=== PATIENT | male | born 1995 | race Caucasian/White ===

== ENCOUNTER 2016-09-30 16:04 | Emergency (ER) | payer BC ==
[2016-09-30] MEDS ORDERED: ACETAMINOPHEN 325 MG TABLET PO ONE (16:30)
[2016-09-30] MEDS ORDERED: NORMAL SALINE 1000 ML 1,000 ML IV ONE (16:30)
--- NOTE | 2016-09-30 16:34 | ER Document Report ---
ED Medical Screen (RME) - General Chief Complaint: Fever Stated Complaint: POSSIBLE SEPSIS SYMPTOMS Mode of Arrival: Wheelchair Information source: Patient, Relative Notes: 21-year-old male presents to the emergency department complaining of fever, lightheadedness, and generalized weakness. 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 I have greeted and performed a rapid initial assessment of this patient. A comprehensive ED assessment and evaluation of the patient, analysis of test results and completion of the medical decision making process will be conducted by additional ED providers. - Related Data Allergies/Adverse Reactions: No Known Allergies Allergy (Unverified 09/30/16 16:30) Past Medical History - Social History Frequency of alcohol use: Social Drug Abuse: Marijuana Renal/ Medical History: Denies: Hx Peritoneal Dialysis - Immunizations Hx Diphtheria, Pertussis, Tetanus Vaccination: Yes Physical Exam - Vital signs Vitals: Temp Pulse Resp BP Pulse Ox 101.8 F H 82 20 124/75 100 09/30/16 16:28 09/30/16 16:28 09/30/16 16:28 09/30/16 16:28 09/30/16 16:28 - General General appearance: Alert, Lethargic In distress: None - Respiratory Respiratory status: No respiratory distress Course - Vital Signs Vital signs: Temp Pulse Resp BP Pulse Ox 101.8 F H 82 20 124/75 100 09/30/16 16:28 09/30/16 16:28 09/30/16 16:28 09/30/16 16:28 09/30/16 16:28
[2016-09-30 17:08] LABS: ABSOLUTE LYMPHOCYTES (AUTO) 0.7 10^3/uL (0.5-4.7); ABSOLUTE MONOCYTES (AUTO) 0.7 10^3/uL (0.1-1.4); ABSOLUTE NEUT (AUTO) 4.7 10^3/uL (1.7-8.2); BASOPHILS % (AUTO) 0.4 % (0-2); EOSINOPHILS % (AUTO) 0.2 % (0-6); HEMATOCRIT 46.6 % (37.9-51.0); HEMOGLOBIN 15.7 g/dL (13.5-17.0); HGB HCT DIFFERENCE 0.5; LYMPHOCYTES % (AUTO) 10.9 % (13-45); MEAN CORPUSCULAR HEMOGLOBIN 29.5 pg (27.0-33.4); MEAN CORPUSCULAR HGB CONC 33.6 g/dL (32.0-36.0); MEAN CORPUSCULAR VOLUME 88 fl (80-97); MONOCYTES % (AUTO) 12.1 % (3-13); RED BLOOD COUNT 5.31 10^6/uL (4.35-5.55); RED CELL DISTRIBUTION WIDTH 12.7 % (11.5-14.0); SEGMENTED NEUTROPHILS % (AUTO) 76.4 % (42-78); WHITE BLOOD COUNT 6.2 10^3/uL (4.0-10.5)
[2016-09-30 17:09] LABS: VENOUS BLOOD HCO3 22.6 mmol/L (20-32); VENOUS BLOOD PCO2 23.9 mmHg (35-63); VENOUS BLOOD PH 7.59 (7.30-7.42)
[2016-09-30 17:13] LABS: PROTHROMBIN TIME 13.9 SEC (11.4-15.4)
[2016-09-30 17:18] LABS: APPEARANCE,URINE SLIGHTLY-CLOUDY; BILIRUBIN,URINE NEGATIVE (NEGATIVE); GLUCOSE, URINE NEGATIVE (NEGATIVE); KETONES,URINE 20 mg/dL (NEGATIVE); LEUKOCYTE ESTERASE,URINE NEGATIVE (NEGATIVE); NITRITE,URINE NEGATIVE (NEGATIVE); PROTEIN,URINE 30 mg/dL (NEGATIVE); URINE SPECIFIC GRAVITY 1.025; UROBILINOGEN,URINE NEGATIVE mg/dL (<2.0)
[2016-09-30 17:29] LABS: ALANINE AMINOTRANSFERASE 27 U/L (21-72); ALKALINE PHOSPHATASE 71 U/L (38-126); ANION GAP 15 (5-19); ASPARTATE AMINO TRANSFERASE 24 U/L (17-59); BILIRUBIN,TOTAL 1.1 mg/dL (0.2-1.3); BLOOD UREA NITROGEN 11 mg/dL (7-20); CALCIUM 10.3 mg/dL (8.4-10.2); CARBON DIOXIDE 20 mmol/L (22-30); CHLORIDE 105 mmol/L (98-107); CREATININE RESULT 0.91 mg/dL (0.52-1.25); GLUCOSE 85 mg/dL (75-110); POTASSIUM 3.8 mmol/L (3.6-5.0); SODIUM 139.7 mmol/L (137-145); TOTAL PROTEIN 7.6 g/dL (6.3-8.2)
[2016-09-30 17:31] LABS: URINE BARBITURATES SCREEN NEGATIVE; URINE METHADONE SCREEN NEGATIVE; URINE PHENCYCLIDINE SCREEN NEGATIVE
--- NOTE | 2016-09-30 17:50 | ER Document Report ---
ED General - General Time seen by provider: 17:50 Mode of Arrival: Wheelchair Information source: Patient, Relative - spouse - HPI Onset: Other - see HPI Quality of pain: Achy Associated symptoms: Body/muscle aches, Productive cough, Fever, Nausea, Vomiting, Other - lightheaded <DEIDRE LY - Last Filed: 09/30/16 19:38> <SARAHANIBAL RJ - Last Filed: 09/30/16 22:48> - General Chief Complaint: Fever Stated Complaint: POSSIBLE SEPSIS SYMPTOMS Notes: Patient is a 21-year-old male presents emergency department with fever, nausea, body aches, vomiting and some lightheadedness. Patient also, complains of some sores to skin area on his hips bilaterally. Patient has had these for more than a year. Patient is coughing upon arrival in the room and states that his body aches as well as his head. Patient states he drank EtOH last night and that he smokes marijuana. Patient has a fever of 102 F. Patient states he did not get a flu shot this year. Patient has no known allergies. (DEIDRE LY) - Related Data Allergies/Adverse Reactions: No Known Allergies Allergy (Unverified 09/30/16 16:30) Past Medical History - General Information source: Patient, Relative - Social History Smoking Status: Current Every Day Smoker Frequency of alcohol use: Social Drug Abuse: Marijuana Family History: None Patient has suicidal ideation: No Patient has homicidal ideation: No - Immunizations Hx Diphtheria, Pertussis, Tetanus Vaccination: Yes History of Influenza Vaccine for 06/2016 - 11/2016 Season: No <DEIDRE LY - Last Filed: 09/30/16 19:38> Review of Systems - Review of Systems Constitutional: See HPI, Fever, Malaise EENT: No symptoms reported Cardiovascular: See HPI, Lightheaded Respiratory: See HPI, Cough Gastrointestinal: See HPI, Nausea, Vomiting Genitourinary: No symptoms reported Male Genitourinary: No symptoms reported Musculoskeletal: See HPI Skin: See HPI Hematologic/Lymphatic: No symptoms reported Neurological/Psychological: See HPI, Headaches -: Yes All other systems reviewed and negative <DEIDRE LY - Last Filed: 09/30/16 19:38> Physical Exam - Vital signs Interpretation: Febrile - General General appearance: Appears well, Alert In distress: Mild - HEENT Head: Normocephalic, Atraumatic Eyes: Normal Pupils: PERRL Nasal: Clear rhinorrhea Mucous membranes: Dry - Respiratory Respiratory status: No respiratory distress Chest status: Nontender Breath sounds: Normal Chest palpation: Normal - Cardiovascular Rhythm: Regular Heart sounds: Normal auscultation Murmur: No - Abdominal Inspection: Other - healed folliculitis on bilateral hips Distension: No distension Bowel sounds: Normal Tenderness: Nontender Organomegaly: No organomegaly - Back Back: Normal, Nontender - Extremities General upper extremity: Normal inspection, Normal ROM, Normal strength General lower extremity: Normal inspection, Normal ROM, Normal strength - Neurological Neuro grossly intact: Yes Cognition: Normal Orientation: AAOx4 [place] Coma Scale Eye Opening: Spontaneous [place] Coma Scale Verbal: Oriented [place] Coma Scale Motor: Obeys Commands [place] Coma Scale Total: 15 Speech: Normal - Psychological Associated symptoms: Normal affect, Normal mood - Skin Skin Temperature: Hot Skin Moisture: Dry Skin Color: Flushed <DEIDRE LY - Last Filed: 09/30/16 19:38> Course - Laboratory Result Diagrams: 09/30/16 16:55 09/30/16 16:55 <DEIDRE LY - Last Filed: 09/30/16 19:38> - Laboratory Result Diagrams: 09/30/16 16:55 09/30/16 16:55 <ANIBAL SMITH - Last Filed: 09/30/16 22:48> - Re-evaluation Re-evalutation: 09/30/16 Patient with fever, cough, erythematous oropharynx. Patient with influenza A. Patient is requesting a prophylactic antibiotic for his skilled folliculitis on his bilateral hips. I have discussed at length with the patient skin infections , flocculated is, and MRSA. I haven't explained at length that he does not need a prophylactic antibiotic. Patient's significant other has threatened to kelly me for malpractice if I do not treat him for a MRSA infection today. I've explained that the patient's symptoms today are consistent with influenza and the patient does not have anything that looks like an active cellulitis or abscess at this time. Patient has been given a prescription for Bactroban and is to follow-up with his doctor. Stable for discharge. (ANIBAL SMITH) - Vital Signs Vital signs: Temp Pulse Resp BP Pulse Ox 98.7 F 87 20 113/52 L 99 09/30/16 19:45 09/30/16 19:45 09/30/16 19:45 09/30/16 19:45 09/30/16 19:45 (DEIDRE LY) (ANIBAL SMITH) - Laboratory Laboratory results interpreted by me: 09/30/16 09/30/16 09/30/16 16:55 16:55 16:55 Lymphocytes % 10.9 L VBG pH 7.59 H VBG pCO2 23.9 L Carbon Dioxide 20 L Calcium 10.3 H Urine Protein Urine Ketones 09/30/16 17:10 Lymphocytes % VBG pH VBG pCO2 Carbon Dioxide Calcium Urine Protein 30 H Urine Ketones 20 H (DEIDRE LY) (ANIBAL SMITH) Discharge <DEIDRE LY - Last Filed: 09/30/16 19:38> <ANIBAL SMITH - Last Filed: 09/30/16 22:48> - Discharge Clinical Impression: Influenza A, Folliculitis Condition: Stable Disposition: HOME, SELF-CARE Instructions: Folliculitis ([facility]), Influenza ([facility]) Prescriptions: Mupirocin [Bactroban 2% Ointment 22 gm] 1 applic TP TID #1 tube Oseltamivir Phosphate [Tamiflu 75 mg Capsule] 75 mg PO BID #10 capsule Forms: Return to Work Scribe Attestation: 09/30/16 22:48 I personally performed the services described in the documentation, reviewed and edited the documentation which was dictated to the scribe in my presence, and it accurately records my words and actions. (ANIBAL SMITH) Scribe Documentation - Scribe Written by Scribmikey:: Deidre Ly 09/30/16 19:10 acting as scribe for :: Sarah <DEIDRE LY - Last Filed: 09/30/16 19:38>
[2016-09-30 18:01] LABS: LIPASE 29.8 U/L (23-300)
[2016-09-30] MEDS ORDERED: RINGERS SOLUTION,LACTATED 1,000 ML IV ONE (18:41)
[2016-09-30 19:53] VITALS: BP 113/52
--- NOTE | 2016-09-30 20:30 | EKG REPORT ---
SEVERITY:- NORMAL ECG - SINUS RHYTHM : Confirmed by: Margarito Almeida MD 30-Sep-2016 20:30:05
== END 2016-09-30 19:53 | disposition home or self-care (01) ==
LOC: ER 16:04
DX: J09.X2 Influenza due to identified novel influenza A virus with other respiratory manifestations (principal); L73.9 Follicular disorder, unspecified; M79.1 Myalgia; R05 Cough; R50.9 Fever, unspecified; R11.2 Nausea with vomiting, unspecified; F17.200 Nicotine dependence, unspecified, uncomplicated
CPT/HCPCS: 93005; 99284; 96360; 36415; 87040; 87070; 87086; 87880; 82550; 83690; 85025; 85610; 80053; 81001; 80307; 82803; 83605; 87804; 71020; 93010; J7030

== ENCOUNTER 2018-06-04 09:10 | Emergency (ER) | payer BC ==
[2018-06-04 09:17] VITALS: BP 140/88
[2018-06-04] MEDS ORDERED: LIDOCAINE 1%/EPINEPHRINE INJ 20 ML VIAL INJ ONE ×3 (09:23→09:41)
--- NOTE | 2018-06-04 09:23 | ER Document Report ---
ED Medical Screen (RME) - General Chief Complaint: Laceration Stated Complaint: LEG LACERATION Time Seen by Provider: 06/04/18 09:18 Mode of Arrival: Ambulatory Information source: Patient Notes: 22-year-old male presents with laceration to the right leg. Patient states that he cut himself with a chain saw just prior to arrival. I have greeted and performed a rapid initial assessment of this patient. A comprehensive ED assessment and evaluation of the patient, analysis of test results and completion of medical decision making process we will be contacted by additional ED providers. PHYSICAL EXAMINATION: GENERAL: Well-appearing, well-nourished and in no acute distress. HEAD: Atraumatic, normocephalic. EYES: Pupils equal round extraocular movements intact, conjunctiva are normal. LUNGS: No respiratory distress NEUROLOGICAL: Normal speech, normal gait. PSYCH: Normal mood, normal affect. SKIN: Laceration to the right distal femur TRAVEL OUTSIDE OF THE [place] IN LAST 30 DAYS: No - HPI Onset: Just prior to arrival Onset/Duration: Sudden Quality of pain: Throbbing Severity: Mild Associated Symptoms: None Exacerbated by: Movement Relieved by: Denies Similar symptoms previously: No Recently seen / treated by doctor: No - Related Data Smoking: Cigarettes Frequency of alcohol use: Occasional Drug Abuse: None Allergies/Adverse Reactions: No Known Allergies Allergy (Verified 06/04/18 09:12) Past Medical History Renal/ Medical History: Denies: Hx Peritoneal Dialysis - Immunizations Hx Diphtheria, Pertussis, Tetanus Vaccination: Yes Physical Exam - Vital signs Vitals: Temp Pulse Resp BP Pulse Ox 97.6 F 64 12 140/88 H 100 06/04/18 09:15 06/04/18 09:15 06/04/18 09:15 06/04/18 09:15 06/04/18 09:15 Course - Vital Signs Vital signs: Temp Pulse Resp BP Pulse Ox 97.6 F 64 12 140/88 H 100 06/04/18 09:15 06/04/18 09:15 06/04/18 09:15 06/04/18 09:15 06/04/18 09:15
--- NOTE | 2018-06-04 09:40 | ER Document Report ---
HPI - HPI Patient complains to provider of: Cut right leg Onset: Just prior to arrival Pain Level: 3 Context: 22-year-old male cut his right medial upper thigh with a chain saw prior to arrival. He has a shirt wrapped around his pants. - DERM Skin Color: Normal, [place] Past Medical History - General Information source: Patient - Social History Smoking Status: Never Smoker Frequency of alcohol use: Occasional Drug Abuse: None Family History: None Patient has suicidal ideation: No Patient has homicidal ideation: No Renal/ Medical History: Denies: Hx Peritoneal Dialysis - Immunizations Hx Diphtheria, Pertussis, Tetanus Vaccination: Yes Vertical Provider Document - CONSTITUTIONAL Agree With Documented VS: Yes Exam Limitations: No Limitations - INFECTION CONTROL TRAVEL OUTSIDE OF THE [place] IN LAST 30 DAYS: No - MUSCULOSKELETAL/EXTREMETIES Musculoskeletal/Extremeties: MAEW, FROM, Tender - laceration - NEURO Level of Consciousness: Awake - DERM Integumentary: Laceration - see procedure note for wound description, right medial distal thigh Course - Vital Signs Vital signs: Temp Pulse Resp BP Pulse Ox 97.6 F 64 12 140/88 H 100 06/04/18 09:15 06/04/18 09:15 06/04/18 09:15 06/04/18 09:15 06/04/18 09:15 Procedures - Laceration/Wound Repair Right Leg Time completed: 10:46 Wound length (cm): 5 - full thickness, superficial adjacent is 5 cm too Wound's Depth, Shape: Superficial - 5 cm adjacent to the full thickness, Linear , Other - 5 cm full thickness, 1.5 cm flap above Laceration pre-procedure: Sterile drapes applied, Other - surgiscrub Volume Anesthetic (mLs): 30 Wound explored: Clean Irrigated w/ Saline (mLs): 500 Wound Repaired With: Sutures Suture Size/Type: 3:0, Nylon Number of Sutures: 14 Layer Closure?: No Post-procedure wound care: Sterile dressing applied - bacitracin Post-procedure NV exam normal: Yes Complications: No Discharge - Discharge Clinical Impression: right leg laceration repair Condition: Good Disposition: HOME, SELF-CARE Instructions: Acetaminophen, Antibiotic Ointment Protection ([facility]), Ibuprofen ( General) ([facility]), Laceration Care ([facility]), Soap Cleansing ([facility]) Additional Instructions: Keep the wound clean and dry Bacitracin for 1 more day Suture removal in 12 days Return to the emergency room any signs of infection which would be red redness, heat, pus Forms: Return to Work
[2018-06-04] MEDS ORDERED: OXYCODONE-ACETAMINOPHEN 5-325 MG TABLET PO ONE (09:43)
[2018-06-04] MEDS ORDERED: IBUPROFEN 600 MG TABLET PO ONE (09:43)
== END 2018-06-04 11:11 | disposition home or self-care (01) ==
LOC: ER 09:10
PROC: 0HQKXZZ Repair Right Lower Leg Skin, External Approach (ICD-10-PCS; principal; 2018-06-04)
DX: S81.811A Laceration without foreign body, right lower leg, initial encounter (principal); W29.3XXA Contact with powered garden and outdoor hand tools and machinery, initial encounter
CPT/HCPCS: 99282; 12004; J3490